=== PATIENT | male | born 1990 | race Caucasian/White ===

== ENCOUNTER 2018-07-30 08:26 | Emergency (ER) | payer SELFPAY ==
[~2018-07-30] VITALS: Ht 170.2 cm; Wt 72.6 kg
--- NOTE | 2018-07-30 09:37 | NUR ---
Patient discharged to home in stable conditon. Written and verbal after care instructions given. Patient verbalizes understanding of instructions.
== END 2018-07-30 09:39 | disposition home or self-care (01) ==
LOC: ER 08:26
DX: H91.92 Unspecified hearing loss, left ear (principal); H66.92 Otitis media, unspecified, left ear
CPT/HCPCS: A4663

== ENCOUNTER 2019-07-18 11:03 | Emergency (ER) | payer MEDICAID ==
[~2019-07-18] VITALS: Ht 170.2 cm; Wt 72.6 kg
[2019-07-18 11:23] VITALS: BP 133/79
--- NOTE | 2019-07-18 11:23 | NUR ---
PT WAS EVALUATED BY DR CANCINO. PT WAS D/C'd TO HOME. D/C INSTRUCTIONS GIVEN TO THE PT.
== END 2019-07-18 11:25 | disposition home or self-care (01) ==
LOC: ER 11:03
DX: M79.671 Pain in right foot (principal); M79.672 Pain in left foot; R20.8 Other disturbances of skin sensation
CPT/HCPCS: A4663

== ENCOUNTER 2021-04-03 18:01 | Emergency (ER) | payer MEDICAID ==
[~2021-04-03] VITALS: Ht 167.6 cm; Wt 90.7 kg
--- NOTE | 2021-04-03 18:30 | NUR ---
Seb urrutia in ED - 04/03/21 at 1850 by MARCUS Clean-catch urine was requested from patient, pending MD evaluation.
--- NOTE | 2021-04-03 18:40 | NUR ---
[email or web address], medical screening exam in progress
--- NOTE | 2021-04-03 18:56 | NUR ---
SBAR to [facility] Cha, pending MD [email or web address] [email or web address].
[2021-04-03] MEDS ORDERED: IBUPROFEN 600 MG TABLET PO ONE (19:00)
[2021-04-03] MEDS ORDERED: HYDROCODONE/APAP 5-325MG TABLET PO ONE (19:00)
[2021-04-03] MEDS ORDERED: ASPIRIN 81 MG TAB.CHEW PO ONE (19:00)
--- NOTE | 2021-04-03 19:08 | NUR ---
pt resting in bed. urine sample collected and sent to lab. pt is malagasy speaking.
[2021-04-03 19:20] LABS: HEMATOCRIT 42.9 % (36.7-47.1); MEAN CORPUSCULAR VOLUME 86.4 fL (73.0-96.2); PLATELET COUNT (AUTO) 245 K/uL (152-348)
[2021-04-03 19:24] LABS: *BILIRUBIN,URIN NEGATIVE (NEGATIVE); *CLARITY,URINE CLEAR (CLEAR); *COLOR,URINE YELLOW (YELLOW); *KETONES,URINE NEGATIVE (NEGATIVE); *UROBILINOGEN,URINE 0.2 E.U./dl (NORMAL); LEUKOCYTE ESTERASE ,URINE NEGATIVE (NEGATIVE); NITRITE, URINE NEGATIVE (NEGATIVE); UGLUCOSE NEGATIVE (NEGATIVE)
[2021-04-03 19:26] LABS: CREATININE 0.9 mg/dL (0.6-1.3)
[2021-04-03] MEDS ORDERED: ASPIRIN 81 MG TAB.CHEW ONE (19:26)
[2021-04-03] MEDS ORDERED: IBUPROFEN 600 MG TABLET ONE (19:26)
[2021-04-03] MEDS ORDERED: HYDROCODONE/APAP 5-325MG TABLET ONE (19:27)
[2021-04-03 19:28] LABS: *BLOOD, URINE TRACE (NEGATIVE)
[2021-04-03 19:29] LABS: BACTERIA,URINE NONE SEEN /HPF (NONE SEEN); RBC,URINE 0-3 /HPF (0-3); SQUAMOUS EPITHELIAL CELL,UR NONE SEEN /HPF (NONE SEEN); WBC,URINE NONE SEEN /HPF (0-3)
[2021-04-03 19:38] LABS: BILIRUBIN,DIRECT 0.1 mg/dL (0.0-0.2); BILIRUBIN,TOTAL 0.3 mg/dL (0.2-1.0); TOTAL PROTEIN, SERUM 7.6 g/dL (6.4-8.2)
[2021-04-03] MEDS ORDERED: HYDR-4209 PO (19:58)
--- NOTE | 2021-04-03 20:08 | NUR ---
pt was previously taken to cat scan and returned.
--- NOTE | 2021-04-03 22:23 | NUR ---
Patient does not wish to proceed with medical care recommended by ( ). Patient given information related to possible complications, up to and including , which could occur as a result of leaving the hospital at this time. Patient verbalizes understanding of risks involved due to leaving against medical advice. Patient has signed AMA form. pt ambulated with steady gait. no complain of pain.
[2021-04-03 22:24] VITALS: BP 119/68
== END 2021-04-03 22:25 | disposition left against medical advice (07) ==
LOC: ER 18:02
DX: R07.9 Chest pain, unspecified (principal); M25.512 Pain in left shoulder; R10.32 Left lower quadrant pain; I45.10 Unspecified right bundle-branch block; R94.31 Abnormal electrocardiogram [ECG] [EKG]
CPT/HCPCS: 36415; 70030-TC; 71045; 85025; 85730; 93005; A4663

== ENCOUNTER 2022-04-07 19:07 | Emergency (ER) | payer MEDICAID ==
[~2022-04-07] VITALS: Ht 172.7 cm; Wt 79.4 kg
[~2022-04-07 19:07] MED LIST: HYDR-4209 PO
[2022-04-07 20:09] LABS: MEAN CORPUSCULAR HEMOGLOBIN 30.1 uug (23.8-33.4); MEAN CORPUSCULAR VOLUME 86.1 fL (73.0-96.2); PLATELET COUNT (AUTO) 311 K/uL (152-348)
--- NOTE | 2022-04-07 20:10 | NUR ---
urine collected and sent to lab
[2022-04-07 20:13] LABS: *BILIRUBIN,URIN NEGATIVE (NEGATIVE); *BLOOD, URINE NEGATIVE (NEGATIVE); *CLARITY,URINE CLEAR (CLEAR); *COLOR,URINE YELLOW (YELLOW); *KETONES,URINE NEGATIVE (NEGATIVE); *UROBILINOGEN,URINE 0.2 E.U./dl (NORMAL); LEUKOCYTE ESTERASE ,URINE NEGATIVE (NEGATIVE); NITRITE, URINE NEGATIVE (NEGATIVE); PH,URINE 7.5 (5.0-8.0); UGLUCOSE NEGATIVE (NEGATIVE)
[2022-04-07 20:25] LABS: BILIRUBIN,DIRECT 0.1 mg/dL (0.0-0.2); BILIRUBIN,TOTAL 0.5 mg/dL (0.2-1.0); CREATININE 0.9 mg/dL (0.6-1.3); TOTAL PROTEIN, SERUM 7.8 g/dL (6.4-8.2)
[2022-04-07] MEDS ORDERED: IOHEXOL 300MG/ML 100 ML INFUS..BTL ONE (20:46)
[2022-04-07] MEDS ORDERED: IV NORMAL SALINE 250 ML IV ONE (20:47)
[2022-04-07] MEDS ORDERED: SWABABLE VALVE TRANSFER SET EA MC ONE (20:47)
[2022-04-07] MEDS ORDERED: HYDR-3972 PO (21:41)
[2022-04-07] MEDS ORDERED: LEVO500T90 PO (21:41)
[2022-04-07 21:50] VITALS: BP 127/80
--- NOTE | 2022-04-07 21:50 | NUR ---
Patient discharged to home in stable condition. Written and verbal after care instructions given. Patient verbalizes understanding of instructions. Stressed follow up or return to ER for worsening s/s.
== END 2022-04-07 21:58 | disposition home or self-care (01) ==
LOC: ER 19:17
DX: K52.9 Noninfective gastroenteritis and colitis, unspecified (principal)
CPT/HCPCS: 99285; 74177; 80076; 80048; 81003; 85025; 36415; Q9967; A4663

== ENCOUNTER 2022-08-04 22:19 | Emergency (ER) | payer MEDICAID ==
[~2022-08-04] VITALS: Ht 172.7 cm; Wt 79.4 kg
[~2022-08-04 22:19] MED LIST changes: +HYDR-3972 PO; -HYDR-4209 PO; +LEVO500T90 PO
[2022-08-04] MEDS ORDERED: ONDANSETRON 4 MG/2 ML VIAL ONE (23:12)
[2022-08-04] MEDS ORDERED: HYDROMORPHONE 1 MG/1 ML DISP.SYRIN ONE (23:13)
[2022-08-04] MEDS ORDERED: ONDANSETRON 4 MG/2 ML VIAL IV ONE (23:15)
[2022-08-04] MEDS ORDERED: IV NORMAL SALINE 1000 ML BAG IV ONE (23:15)
[2022-08-04] MEDS ORDERED: HYDROMORPHONE 1 MG/1 ML DISP.SYRIN IV ONE (23:15)
[2022-08-04 23:39] LABS: HEMATOCRIT 42.7 % (36.7-47.1); MEAN CORPUSCULAR HEMOGLOBIN 29.9 uug (23.8-33.4); MEAN CORPUSCULAR VOLUME 86.5 fL (73.0-96.2); PLATELET COUNT (AUTO) 278 K/uL (152-348)
[2022-08-04 23:40] LABS: *BILIRUBIN,URIN NEGATIVE (NEGATIVE); *CLARITY,URINE CLEAR (CLEAR); *COLOR,URINE YELLOW (YELLOW); *KETONES,URINE NEGATIVE (NEGATIVE); *UROBILINOGEN,URINE 0.2 E.U./dl (NORMAL); LEUKOCYTE ESTERASE ,URINE NEGATIVE (NEGATIVE); NITRITE, URINE NEGATIVE (NEGATIVE); PH,URINE 7.5 (5.0-8.0); UGLUCOSE NEGATIVE (NEGATIVE)
[2022-08-04 23:41] LABS: *BLOOD, URINE NEGATIVE (NEGATIVE)
[2022-08-04 23:49] LABS: CREATININE 0.9 mg/dL (0.6-1.3); POTASSIUM 3.6 mmol/L (3.5-5.1)
[2022-08-04 23:54] LABS: BILIRUBIN,DIRECT 0.1 mg/dL (0.0-0.2); BILIRUBIN,TOTAL 0.3 mg/dL (0.2-1.0); TOTAL PROTEIN, SERUM 7.7 g/dL (6.4-8.2)
[2022-08-05] MEDS ORDERED: SWABABLE VALVE TRANSFER SET EA MC ONE (00:04)
[2022-08-05] MEDS ORDERED: IOHEXOL 300MG/ML 100 ML INFUS..BTL ONE (00:04)
[2022-08-05] MEDS ORDERED: IV NORMAL SALINE 250 ML IV ONE (00:04)
[2022-08-05] MEDS ORDERED: TETR-57 PO (04:32)
[2022-08-05] MEDS ORDERED: OMEP20CA15 PO (04:32)
[2022-08-05] MEDS ORDERED: METR500T PO (04:32)
[2022-08-05] MEDS ORDERED: BISM262T18 PO (04:32)
[2022-08-05] MEDS ORDERED: HYDR-3980 PO (04:32)
--- NOTE | 2022-08-05 04:45 | NUR ---
Patient discharged to home in stable condition. Written and verbal after care instructions given. Patient verbalizes understanding of instructions. Stressed follow up or return to ER for worsening s/s. Patient walked out with steady gait.
[2022-08-05 05:02] VITALS: BP 140/95
== END 2022-08-05 04:50 | disposition home or self-care (01) ==
LOC: ER 22:19
DX: K29.70 Gastritis, unspecified, without bleeding (principal); Z79.2 Long term (current) use of antibiotics; Z79.899 Other long term (current) drug therapy
CPT/HCPCS: 99285; 74177; 96374; 96361; 96375; 80076; 80048; 81003; 83690; 85025; 36415; J2405; J1170; J7040; Q9967; A4663

== ENCOUNTER → 2024-06-19 | Emergency (ER) | payer MEDICAID, OTHER ==
[~2024-06-19] VITALS: Ht 167.6 cm; Wt 75.3 kg
[~2024-06-19] MED LIST changes: +BISM262T18 PO; +HYDR-3980 PO; +IOHEXOL 300MG/ML 100 ML INFUS..BTL ONE; +IV NORMAL SALINE 250 ML IV ONE; +METR500T PO; +OMEP20CA15 PO; +SWABABLE VALVE TRANSFER SET EA MC ONE; +TETR-57 PO
[2024-06-19] MEDS: IV NORMAL SALINE 1000 ML BAG IV ONE (17:49)
[2024-06-19 17:58] LABS: *BILIRUBIN,URIN NEGATIVE (NEGATIVE); *BLOOD, URINE NEGATIVE (NEGATIVE); *CLARITY,URINE CLEAR (CLEAR); *KETONES,URINE NEGATIVE (NEGATIVE); *PROTEIN,URINE NEGATIVE (NEGATIVE); *UROBILINOGEN,URINE 0.2 E.U./dl (NORMAL); LEUKOCYTE ESTERASE ,URINE NEGATIVE (NEGATIVE); NITRITE, URINE NEGATIVE (NEGATIVE); PH,URINE 6.5 (5.0-8.0); UGLUCOSE NEGATIVE (NEGATIVE)
[2024-06-19 18:02] LABS: BASOPHILS % (AUTO) 0.5 % (0.0-2.0); EOSINOPHILS # (AUTO) 0.1 K/uL (0.0-0.7); EOSINOPHILS % (AUTO) 2.1 % (0.0-7.0); HEMATOCRIT 44.7 % (36.7-47.1); HEMOGLOBIN 15.6 g/dL (12.5-16.3); LYMPHOCYTES # (AUTO) 1.4 K/uL (0.8-4.8); MEAN CORPUSCULAR HEMOGLOBIN 30.5 uug (23.8-33.4); MEAN CORPUSCULAR HGB CONC 35 g/dL (32.5-36.3); MEAN CORPUSCULAR VOLUME 87.3 fL (73.0-96.2); MONOCYTES # (AUTO) 0.3 K/uL (0.1-1.30); MONOCYTES % (AUTO) 6.4 % (0.0-11.0); NEUTROPHILS # (AUTO) 2.7 K/uL (1.8-8.9); PLATELET COUNT (AUTO) 254 K/uL (152-348); RED BLOOD CELL COUNT(AUTO) 5.12 MIL/uL (4.06-5.63); RED CELL DISTRIBUTION WIDTH 13.7 % (12.1-16.2); WHITE BLOOD COUNT (AUTO) 4.5 K/uL (3.6-10.2)
[2024-06-19 18:06] LABS: DIFFERENTIAL COMMENT 1
[2024-06-19 18:07] LABS: *COLOR,URINE STRAW (YELLOW)
[2024-06-19 18:09] LABS: CALCIUM 9.4 mg/dL (8.5-10.1)
[2024-06-19 18:15] LABS: ALBUMIN 4.2 g/dL (3.4-5.0); BILIRUBIN,DIRECT 0.2 mg/dL (0.0-0.2); BILIRUBIN,TOTAL 0.5 mg/dL (0.2-1.0); TOTAL PROTEIN, SERUM 7.7 g/dL (6.4-8.2)
[2024-06-19] MEDS: KETAMINE HCL 500 MG/10 ML INJ IM PRN (18:26)
[2024-06-19 21:05] VITALS: BP 130/85; O2SAT 97
== END | disposition home or self-care (01) ==
LOC: ER 17:30
DX: R10.32 Left lower quadrant pain (principal); R11.2 Nausea with vomiting, unspecified; Z79.899 Other long term (current) drug therapy
CPT/HCPCS: 99285; 74177; 96360; 80076; 80048; 81003; 83690; 85025; 36415; Q9967; J7040; A4606; A4663

== ENCOUNTER 2025-01-13 23:55 | Emergency (ER) | payer OTHER ==
[~2025-01-13] VITALS: Ht 170.2 cm; Wt 83.9 kg
[~2025-01-13 23:55] MED LIST changes: -IOHEXOL 300MG/ML 100 ML INFUS..BTL ONE; -IV NORMAL SALINE 250 ML IV ONE; -SWABABLE VALVE TRANSFER SET EA MC ONE
[2025-01-14] MEDS: MORPHINE SULFATE 2 MG/1 ML DISP.SYRIN IV ONE (00:30)
[2025-01-14] MEDS: ONDANSETRON 4 MG/2 ML VIAL IV ONE (00:30)
[2025-01-14 00:48] LABS: *BILIRUBIN,URIN NEGATIVE (NEGATIVE); *CLARITY,URINE CLEAR (CLEAR); *COLOR,URINE YELLOW (YELLOW); *KETONES,URINE TRACE (NEGATIVE); *PROTEIN,URINE NEGATIVE (NEGATIVE); *UROBILINOGEN,URINE 0.2 E.U./dl (NORMAL); LEUKOCYTE ESTERASE ,URINE NEGATIVE (NEGATIVE); NITRITE, URINE NEGATIVE (NEGATIVE); UGLUCOSE NEGATIVE (NEGATIVE)
[2025-01-14 00:49] LABS: *BLOOD, URINE TRACE (NEGATIVE)
[2025-01-14 01:09] LABS: CREATININE 1.0 mg/dL (0.6-1.3); SODIUM SERUM 142.0 mmol/L (136-145); UREA NITROGEN, BLOOD 15.0 mg/dL (7-18)
[2025-01-14 01:11] LABS: PLATELET COUNT (AUTO) 260 K/uL (152-348); RED BLOOD CELL COUNT(AUTO) 4.99 MIL/uL (4.06-5.63); RED CELL DISTRIBUTION WIDTH 13.4 % (12.1-16.2); WHITE BLOOD COUNT (AUTO) 5.1 K/uL (3.6-10.2)
[2025-01-14 01:15] LABS: ASPARTATE AMINOTRANSFERASE 23.0 U/L (15-37); TOTAL PROTEIN, SERUM 7.2 g/dL (6.4-8.2)
[2025-01-14] MEDS ORDERED: ONDANSETRON 4 MG/2 ML VIAL ONE (01:41)
[2025-01-14] MEDS ORDERED: MORPHINE SULFATE 4 MG/1 ML DISP.SYRIN ONE (01:42)
[2025-01-14] MEDS ORDERED: IOHEXOL 300MG/ML 100 ML INFUS..BTL ONE (01:56)
[2025-01-14 02:00] VITALS: BP 121/78
[2025-01-14] MEDS ORDERED: DOXYCYCLINE HYCLATE 100 MG TABLET ONE (02:35)
[2025-01-14] MEDS ORDERED: CEFTRIAXONE 500 MG VIAL ONE (02:35)
[2025-01-14] MEDS: DOXYCYCLINE HYCLATE 100 MG TABLET PO ONE (02:50)
[2025-01-14] MEDS: CEFTRIAXONE 500 MG VIAL IM ONE (02:50)
[2025-01-14 03:11] VITALS: BP 129/81; O2SAT 99
[2025-01-14] MEDS ORDERED: DOXY100C5 PO (03:22)
[2025-01-14] MEDS ORDERED: HYDR-4209 PO (03:22)
== END 2025-01-14 03:51 | disposition home or self-care (01) ==
LOC: ER 01-14 00:06
DX: N45.1 Epididymitis (principal); R10.32 Left lower quadrant pain; K57.30 Diverticulosis of large intestine without perforation or abscess without bleeding; Z79.899 Other long term (current) drug therapy; Z88.7 Allergy status to serum and vaccine
CPT/HCPCS: 99285; 74177; 96374; 96375; 80076; 80048; 81001; 83690; 85025; 36415; 76870; 96372; J0696; J2405; Q9967; J2270; A4606; A4663